=== PATIENT | female | born 1980 | race Two or more races ===

== ENCOUNTER 2018-09-05 05:16 | Emergency (ER) | payer MEDICAID ==
[~2018-09-05] VITALS: Ht 167.6 cm; Wt 59.9 kg
[2018-09-05] MEDS ORDERED: TDAP DIPH,PERTUSS,TET VAC/PF 0.5 ML DISP.SYRIN IM ONE ×2 (05:37→05:45)
[2018-09-05] MEDS ORDERED: CEPHALEXIN MONOHYDRATE 500 MG CAPSULE PO ONE (05:45)
[2018-09-05] MEDS ORDERED: CEPHALEXIN MONOHYDRATE 500 MG CAPSULE ONE (05:45)
[2018-09-05] MEDS ORDERED: BACITRACIN OPHT OINT 3.5 GM TUBE ONE (05:49)
[2018-09-05] MEDS ORDERED: BACITRACIN/POLYMYXIN B OINT 15 GM TUBE TOP ONE (06:00)
== END 2018-09-05 05:54 | disposition home or self-care (01) ==
LOC: ER 05:20
DX: S61.012A Laceration without foreign body of left thumb without damage to nail, initial encounter (principal); E10.9 Type 1 diabetes mellitus without complications; Z88.1 Allergy status to other antibiotic agents; F12.10 Cannabis abuse, uncomplicated; W26.0XXA Contact with knife, initial encounter; Y93.89 Activity, other specified; Y92.89 Other specified places as the place of occurrence of the external cause; Y99.8 Other external cause status
CPT/HCPCS: 90715; A4217; A4663; J3590

== ENCOUNTER 2018-11-04 07:09 | Emergency (ER) | payer MEDICAID ==
[~2018-11-04] VITALS: Ht 167.6 cm; Wt 62.6 kg
[2018-11-04 07:32] LABS: *BILIRUBIN,URIN NEGATIVE (NEGATIVE); *BLOOD, URINE 2+ (NEGATIVE); *CLARITY,URINE CLEAR (CLEAR); *COLOR,URINE YELLOW (YELLOW); *KETONES,URINE NEGATIVE (NEGATIVE); *PROTEIN,URINE NEGATIVE (NEGATIVE); *UROBILINOGEN,URINE 0.2 E.U./dl (NORMAL); LEUKOCYTE ESTERASE ,URINE NEGATIVE (NEGATIVE); NITRITE, URINE NEGATIVE (NEGATIVE); PH,URINE 5.5 (5.0-8.0); UGLUCOSE 2+ (NEGATIVE)
[2018-11-04 07:33] LABS: *URINE HCG, QUAL NEGATIVE (NEGATIVE)
[2018-11-04 07:45] LABS: BACTERIA,URINE FEW /HPF (NONE SEEN); RBC,URINE NONE SEEN /HPF (0-3); SQUAMOUS EPITHELIAL CELL,UR MODERATE /HPF (NONE SEEN); WBC,URINE 0-3 /HPF (0-3)
--- NOTE | 2018-11-04 07:51 | NUR ---
Patient is resting comfortably on gurney while talking to her visitor. PATIENT IS PAIN FREE AT THIS TIME.
--- NOTE | 2018-11-04 08:02 | NUR ---
Pt eloped. was speaking to the pt and her mother in room 5a when the pt decided to leave. Pt was seen ambulating out of the ER with steady gait.
== END 2018-11-04 08:05 | disposition left against medical advice (07) ==
LOC: ER 07:09
DX: R31.9 Hematuria, unspecified (principal); S06.5X9A Traumatic subdural hemorrhage with loss of consciousness of unspecified duration, initial encounter; I77.71 Dissection of carotid artery; E10.9 Type 1 diabetes mellitus without complications; F12.10 Cannabis abuse, uncomplicated; Z88.1 Allergy status to other antibiotic agents; V89.2XXA Person injured in unspecified motor-vehicle accident, traffic, initial encounter; Y93.89 Activity, other specified; Y92.89 Other specified places as the place of occurrence of the external cause; Y99.8 Other external cause status
CPT/HCPCS: 84703; A4663